=== PATIENT | male | born 1985 | race Caucasian/White ===

== ENCOUNTER 2016-11-27 09:54 | Emergency (ER) | payer BC ==
[~2016-11-27] VITALS: Ht 188 cm; Wt 140.6 kg
--- NOTE | 2016-11-27 09:59 | PHYS DOC ---
Adult General Chief Complaint Chief Complaint: ANKLE PROBLEM HPI HPI Patient is a 31 year old male who presents with. He states last night he was walking and stepped on one of his son's toys of which he just purchased and twisted his right ankle. States last night it was numb on top surface of his foot and states the numbness resolved this morning. He complains of pain. He has been able to walk on it with discomfort though. He denies any knee pain, or other concerns. He complains of pain over the lateral aspect of his right ankle Review of Systems Review of Systems Constitutional: Denies fever or chills [] Eyes: Denies change in visual acuity, redness, or eye pain [] HENT: Denies nasal congestion or sore throat [] Respiratory: Denies cough or shortness of breath [] Cardiovascular: No additional information not addressed in HPI [] GI: Denies abdominal pain, nausea, vomiting, bloody stools or diarrhea [] : Denies dysuria or hematuria [] Musculoskeletal: Denies back pain, positive for right ankle pain Integument: Denies rash or skin lesions [] Neurologic: Denies headache, focal weakness or sensory changes [] Endocrine: Denies polyuria or polydipsia [] Allergies Allergies Allergies Coded Allergies Type Severity Reaction Last Updated Verified No Known Drug Allergies 11/27/16 No Physical Exam Physical Exam Constitutional: Well developed, well nourished, no acute distress, non-toxic appearance. [] HENT: Normocephalic, atraumatic, bilateral external ears normal, oropharynx moist, no oral exudates, nose normal. [] Eyes: PERRLA, EOMI, conjunctiva normal, no discharge. [] Neck: Normal range of motion, no tenderness, supple, no stridor. [] Cardiovascular:Heart rate regular rhythm, no murmur [] Lungs & Thorax: Bilateral breath sounds clear to auscultation [] Abdomen: Bowel sounds normal, soft, no tenderness, no masses, no pulsatile masses. [] Skin: Warm, dry, no erythema, no rash. [] Back: No tenderness, no CVA tenderness. [] Extremities: Palpation with swelling over the right lateral ankle, dorsal pedis pulse 2+ no tenderness over the calf or below the knee, no cyanosis, no clubbing , ROM intact, no edema. [] Neurologic: Alert and oriented X 3, normal motor function, normal sensory function, no focal deficits noted. [] Psychologic: Affect normal, judgement normal, mood normal. [] Current Patient Data Vital Signs Vital Signs Date Time Temp Pulse Resp B/P (MAP) Pulse Ox O2 Delivery O2 Flow Rate FiO2 11/27/16 10:14 98.1 95 18 97 Room Air 98.1 EKG EKG [] Radiology/Procedures Radiology/Procedures [facility] [address] [place] [address] IMAGING REPORT Signed PATIENT: CRISTOFER VILLATORO ACCOUNT: [id number] : 1985 LOCATION: ER AGE: 31 SEX: M EXAM STATUS: PRE ER ORD. PHYSICIAN: ISABELLA LIMON MD REASON: pain, swelling PROCEDURE: ANKLE RIGHT 3V Three-view right ankle radiographs 11/27/2016 Clinical history: Right ankle pain and swelling post twisting injury last night. AP, lateral and oblique digital radiographs of the right ankle were obtained. The right ankle mortise is intact. No fracture or dislocation of the right ankle is seen. Soft tissue swelling is seen adjacent to the lateral malleolus of the right ankle. Impression: No fracture or dislocation of the right ankle is seen. DICTATED and SIGNED BY: ELIZABETH OROSCO MD DATE: 11/27/16 1038 CC: ISABELLA LIMON MD ~ Impressions: Ankle sprain Course & Med Decision Making Course & Med Decision Making Pertinent Labs and Imaging studies reviewed. (See chart for details) He's been ambulating on his ankle. He is instructed to use air splint, ice as needed, and can use crutches as needed. He's follow-up orthopedic surgery if not any better or return back to ER. He is agreeable to the plan and being discharged in stable condition this time. Dragon Disclaimer Dragon Disclaimer This electronic medical record was generated, in whole or in part, using a voice recognition dictation system. Departure Departure Impression: Primary Impression: Ankle sprain Disposition: 01 HOME, SELF-CARE Condition: STABLE Referrals: COURT HAYES MD Patient Instructions: Ankle Sprain Additional Instructions: The x-rays do not show anything broken on your ankle. This does not mean that you did not damage any of her ligaments. Your being discharged home with crutches and he can use them as needed. He can take Tylenol or Advil for discomfort. You can use an air splint to help protect her ankle over the next several days until he gets stronger. If your pain does not improve, he gets worse, you have swelling, increasing pain or other concerns please return back to the ER. He can follow-up with Dr. Antonio with orthopedic surgery, if your pain does not get better as you might need additional x-rays or MRI is in the future. Problem Qualifiers Primary Impression: Ankle sprain Encounter type: initial encounter Involved ligament of ankle: unspecified ligament Laterality: right Qualified Codes: S93.401A - Sprain of unspecified ligament of right ankle, initial encounter ISABELLA LIMON MD Nov 27, 2016 09:59
[2016-11-27 10:14] VITALS: BP 149/80
--- NOTE | 2016-11-27 10:44 | RAD ---
Three-view right ankle radiographs 11/27/2016 Clinical history: Right ankle pain and swelling post twisting injury last night. AP, lateral and oblique digital radiographs of the right ankle were obtained. The right ankle mortise is intact. No fracture or dislocation of the right ankle is seen. Soft tissue swelling is seen adjacent to the lateral malleolus of the right ankle. Impression: No fracture or dislocation of the right ankle is seen.
== END 2016-11-27 11:22 | disposition home or self-care (01) ==
LOC: ER 09:54
DX: S93.401A Sprain of unspecified ligament of right ankle, initial encounter (principal); X50.1XXA Overexertion from prolonged static or awkward postures, initial encounter; Y93.01 Activity, walking, marching and hiking; Y99.8 Other external cause status; Y92.89 Other specified places as the place of occurrence of the external cause
CPT/HCPCS: 73610; 99284; L4350